=== PATIENT | male | born 1950 | race African-American/Black ===

== ENCOUNTER 2017-04-28 12:54 | Inpatient (IN) | payer OTHER ==
[~2017-04-28] VITALS: Ht 165.1 cm; Wt 61.7 kg
[2017-04-28] MEDS ORDERED: INSULIN (12:59)
[2017-04-28] MEDS ORDERED: SODIUM CHLORIDE 0.9% 1,000 ML IV ONE (13:56)
[2017-04-28 14:12] LABS: BASOPHILS % 0.3 % (0.0-2.0); HEMATOCRIT. 36.6 % (42.0-52.0); HEMOGLOBIN. 12.2 g/dL (14.0-18.0); MEAN CORPUSCULAR HEMOGLOBIN 31.1 pg (28.0-32.0); MEAN CORPUSCULAR VOLUME 93.1 fL (80.0-94.0); MEAN PLATELET VOLUME 7.8 fl (7.4-10.4); MONOCYTES % 12.6 % (2.0-8.0); NEUTROPHILS % 71.1 % (40.0-76.0); PLATELET 213 x1000/uL (130-400); RED BLOOD CELL COUNT 3.93 mill/uL (4.7-6.1); RED CELL DISTRIBUTION WIDTH 13.6 % (11.6-14.6)
[2017-04-28 14:28] LABS: CARBON DIOXIDE 27 mEq/L (21-32); CHLORIDE 96 mEq/L (98-107); ETHANOL BLOOD 32 mg/dL; TROPONIN I < 0.02 ng/mL (0.00-0.04)
[2017-04-28 14:57] LABS: CLARITY URINE CLEAR (CLEAR); COLOR URINE YELLOW (YELLOW); GLUCOSE URINE 3+ (NEGATIVE); KETONES URINE NEGATIVE (NEGATIVE); LEUKOCYTE ESTERASE URINE NEGATIVE (NEGATIVE); NITRITE URINE NEGATIVE (NEGATIVE); OCCULT BLOOD URINE 1+ (NEGATIVE); PH URINE 5.5 (4.5-8.0); PROTEIN URINE TRACE (NEGATIVE); SPECIFIC GRAVITY URINE 1.027 (1.005-1.030); UROBILINOGEN URINE 0.2 E.U./dL (0.2-1.0)
[2017-04-28 15:30] LABS: *AMPHETAMINES SCREEN URINE NEGATIVE (NEGATIVE); *BARBITURATES SCREEN URINE NEGATIVE (NEGATIVE); *BENZODIAZEPINES SCREEN URINE NEGATIVE (NEGATIVE); *COCAINE SCREEN URINE PRESUMTIVE POSITIVE (NEGATIVE); CANNABINOID URINE SCREEN NEGATIVE (NEGATIVE); METHADONE URINE SCREEN NEGATIVE (NEGATIVE); OPIATES URINE SCREEN NEGATIVE (NEGATIVE); PHENCYCLIDINE URINE SCREEN NEGATIVE (NEGATIVE)
[2017-04-28] MEDS ORDERED: INSULIN REGULAR (HUMULIN R) UD 100 UNITS/ML SYR IV ONE (15:30)
[2017-04-28] MEDS: INSULIN REGULAR (HUMULIN R) 300UNITS/3ML IV NR ×2 (15:45→17:03)
[2017-04-28] MEDS ORDERED: IPRATROPIUM/ALBUTEROL 0.5-3(2.5)MG/3ML NEB INH PRN (19:30)
[2017-04-28] MEDS ORDERED: ONDANSETRON HCL 4MG/2ML VIAL IV PRN (19:30)
[2017-04-28] MEDS ORDERED: MAGNESIUM/ALUMINUM HYDROXIDE/SIMETHICONE 30ML UDC PO PRN (19:30)
[2017-04-28] MEDS ORDERED: DIPHENHYDRAMINE 50MG/ML VIAL IV PRN (19:30)
[2017-04-28] MEDS ORDERED: LORAZEPAM 0.5MG TABLET PO PRN (19:30)
[2017-04-28] MEDS ORDERED: DEXTROSE 50% WATER 50ML SYRINGE IV PRN (19:30)
[2017-04-28 20:00] VITALS: BP 116/80
[2017-04-28] MEDS: BLOOD SUGAR DIAGNOSTIC STRIP TEST SCH (21:23)
[2017-04-28] MEDS: SODIUM CHLORIDE 0.9% 1,000 ML IV SCH (21:29)
[2017-04-28] MEDS: INSULIN LISPRO 100 UNITS/ML SUBCUT SCH (21:30)
[2017-04-28 21:40] LABS: CHLORIDE 103 mEq/L (98-107)
[2017-04-28 21:45] LABS: CARBON DIOXIDE 28 mEq/L (21-32)
[2017-04-28] MEDS ORDERED: INSULIN DETEMIR UD 100 UNITS/ML SYR SUBCUT SCH (22:00)
[2017-04-28 22:11] VITALS: BP 113/72
[2017-04-29] VITALS: BP 143/81
[2017-04-29 04:00] VITALS: BP 116/75
[2017-04-29] MEDS: SODIUM CHLORIDE 0.9% 1,000 ML IV SCH (04:19)
[2017-04-29] MEDS: BLOOD SUGAR DIAGNOSTIC STRIP TEST SCH ×4 (06:15→20:42)
[2017-04-29] MEDS: INSULIN LISPRO 100 UNITS/ML SUBCUT SCH ×4 (06:15→21:06)
[2017-04-29 08:00] VITALS: BP 106/62
[2017-04-29 12:00] VITALS: BP 116/75
[2017-04-29] MEDS ORDERED: POTASSIUM CHLORIDE 20MEQ TABLET SR PO SCH (14:00)
[2017-04-29 16:00] VITALS: BP 132/90
[2017-04-29] MEDS: ACETAMINOPHEN 325MG TABLET PO PRN (17:05)
[2017-04-29 20:00] VITALS: BP 98/63
[2017-04-29] MEDS: INSULIN DETEMIR UD 100 UNITS/ML SYR SUBCUT SCH (21:05)
[2017-04-30] VITALS: BP 126/77
[2017-04-30 04:00] VITALS: BP 120/75
[2017-04-30] MEDS: INSULIN LISPRO 100 UNITS/ML SUBCUT SCH ×4 (06:35→21:18)
[2017-04-30] MEDS: BLOOD SUGAR DIAGNOSTIC STRIP TEST SCH ×4 (06:35→21:14)
[2017-04-30 08:00] VITALS: BP 117/90
[2017-04-30 08:11] LABS: CARBON DIOXIDE 28 mEq/L (21-32); CHLORIDE 105 mEq/L (98-107)
[2017-04-30] MEDS ORDERED: POTASSIUM CHLORIDE 20MEQ TABLET SR PO NR ×2 (09:45→13:45)
[2017-04-30] MEDS ORDERED: MAGNESIUM 4 G PREMIX 100 ML IV NR ×2 (11:30→13:30)
[2017-04-30 12:00] VITALS: BP 153/90
[2017-04-30 16:00] VITALS: BP 179/103
[2017-04-30] MEDS: CLONIDINE 0.1MG TABLET PO PRN (17:03)
[2017-04-30 20:00] VITALS: BP 98/65
[2017-04-30] MEDS: ACETAMINOPHEN 325MG TABLET PO PRN (21:13)
[2017-04-30] MEDS: INSULIN DETEMIR UD 100 UNITS/ML SYR SUBCUT SCH (21:14)
[2017-05-01] VITALS: BP 100/63
[2017-05-01 04:00] VITALS: BP 127/78
[2017-05-01] MEDS: BLOOD SUGAR DIAGNOSTIC STRIP TEST SCH ×4 (06:12→21:00)
[2017-05-01] MEDS: INSULIN LISPRO 100 UNITS/ML SUBCUT SCH ×4 (06:12→21:38)
[2017-05-01 08:46] VITALS: BP 102/62
[2017-05-01 12:10] VITALS: BP 128/60
[2017-05-01 16:39] VITALS: BP 103/65
[2017-05-01 20:00] VITALS: BP 120/66
[2017-05-01] MEDS: INSULIN DETEMIR UD 100 UNITS/ML SYR SUBCUT SCH (21:39)
[2017-05-02] VITALS: BP 131/77
[2017-05-02 04:00] VITALS: BP 128/72
[2017-05-02] MEDS: BLOOD SUGAR DIAGNOSTIC STRIP TEST SCH ×4 (06:06→21:24)
[2017-05-02] MEDS: INSULIN LISPRO 100 UNITS/ML SUBCUT SCH ×4 (06:25→21:32)
[2017-05-02 08:00] VITALS: BP 125/70
[2017-05-02 12:00] VITALS: BP 121/79
[2017-05-02 16:09] VITALS: BP 164/82
[2017-05-02] MEDS: METFORMIN HCL 500MG TABLET PO SCH (17:33)
[2017-05-02 20:00] VITALS: BP 107/62
[2017-05-02] MEDS: INSULIN DETEMIR UD 100 UNITS/ML SYR SUBCUT SCH (22:34)
[2017-05-03] VITALS: BP 105/60
[2017-05-03 05:00] VITALS: BP 82/50
[2017-05-03] MEDS: BLOOD SUGAR DIAGNOSTIC STRIP TEST SCH ×4 (06:28→21:00)
[2017-05-03] MEDS: INSULIN LISPRO 100 UNITS/ML SUBCUT SCH ×4 (06:29→22:07)
[2017-05-03 08:00] VITALS: BP 104/62
[2017-05-03] MEDS: METFORMIN HCL 500MG TABLET PO SCH ×2 (08:35→17:21)
[2017-05-03 12:00] VITALS: BP 109/66
[2017-05-03 16:00] VITALS: BP 127/72
[2017-05-03] MEDS ORDERED: MAGNESIUM 2 G PREMIX 50 ML IV NR (18:00)
[2017-05-03 20:00] VITALS: BP 100/52
[2017-05-03] MEDS: INSULIN DETEMIR UD 100 UNITS/ML SYR SUBCUT SCH (22:15)
[2017-05-04] VITALS: BP 104/62
[2017-05-04 04:00] VITALS: BP 106/65
[2017-05-04] MEDS: INSULIN LISPRO 100 UNITS/ML SUBCUT SCH ×4 (06:39→21:05)
[2017-05-04] MEDS: BLOOD SUGAR DIAGNOSTIC STRIP TEST SCH ×4 (06:39→20:50)
[2017-05-04 08:00] VITALS: BP 86/45
[2017-05-04] MEDS: METFORMIN HCL 500MG TABLET PO SCH ×2 (08:06→17:57)
[2017-05-04 12:00] VITALS: BP 165/99
[2017-05-04] MEDS: CLONIDINE 0.1MG TABLET PO PRN (12:54)
[2017-05-04 16:00] VITALS: BP 99/60
[2017-05-04 20:00] VITALS: BP 109/71
[2017-05-04] MEDS: INSULIN DETEMIR UD 100 UNITS/ML SYR SUBCUT SCH (21:05)
[2017-05-05] VITALS: BP 116/65
[2017-05-05 04:00] VITALS: BP 94/51
[2017-05-05] MEDS: BLOOD SUGAR DIAGNOSTIC STRIP TEST SCH ×2 (05:53→11:56)
[2017-05-05] MEDS: INSULIN LISPRO 100 UNITS/ML SUBCUT SCH ×2 (06:39→12:19)
[2017-05-05] MEDS: METFORMIN HCL 500MG TABLET PO SCH (07:57)
[2017-05-05 08:00] VITALS: BP 127/74
[2017-05-05 12:00] VITALS: BP 125/67
[2017-05-05 13:12] VITALS: BP 125/67
== END 2017-05-05 13:40 | disposition home or self-care (01) | DRG 638 ==
LOC: ER 13:33 → 5WST 16:46 → ENRESERV 17:29
PROVIDERS: ADMIT Internal Medicine; ATTEND Internal Medicine
DX: E11.00 Type 2 diabetes mellitus with hyperosmolarity without nonketotic hyperglycemic-hyperosmolar coma (NKHHC) (principal); N17.9 Acute kidney failure, unspecified; E11.42 Type 2 diabetes mellitus with diabetic polyneuropathy; I10 Essential (primary) hypertension; E11.65 Type 2 diabetes mellitus with hyperglycemia; E86.0 Dehydration; F43.10 Post-traumatic stress disorder, unspecified; F14.10 Cocaine abuse, uncomplicated; Z79.4 Long term (current) use of insulin; Z91.19 Patient's noncompliance with other medical treatment and regimen; Z82.49 Family history of ischemic heart disease and other diseases of the circulatory system; Z83.3 Family history of diabetes mellitus
CPT/HCPCS: 36415; 70450; 80048; 80051; 80053; 80305; 81001; 82962; 83036; 83735; 84484; 85025; 96361; 96374; 97116; 97162; 97530; 99285; G0482; J1815; J3475; J7030

== ENCOUNTER 2018-10-17 00:13 | Emergency (ER) | payer MEDICARE, MEDICAID ==
[~2018-10-17] VITALS: Ht 172.7 cm; Wt 82.0 kg
[~2018-10-17 00:13] MED LIST: GABA-529 PO; HYDR-4001 PO; INSLIS SUBCUT
[2018-10-17] MEDS ORDERED: KETOROLAC 15MG/ML VIAL IM ONE (01:00)
[2018-10-17 02:01] VITALS: BP 150/68
== END 2018-10-17 02:02 | disposition home or self-care (01) ==
LOC: ER 00:13
DX: M19.90 Unspecified osteoarthritis, unspecified site (principal); E11.42 Type 2 diabetes mellitus with diabetic polyneuropathy; I10 Essential (primary) hypertension; M10.9 Gout, unspecified; Z79.4 Long term (current) use of insulin
CPT/HCPCS: 96372; 99283; J1885

== ENCOUNTER 2018-12-04 21:10 | Emergency (ER) | payer BC, MEDICAID ==
[~2018-12-04] VITALS: Ht 177.8 cm; Wt 73.0 kg
[2018-12-05] MEDS ORDERED: IBUPROFEN 600MG TABLET PO ONE (03:30)
[2018-12-05] MEDS ORDERED: HYDROCODONE/ACETAMINOPHEN 5/325MG TABLET PO ONE (03:30)
[2018-12-05 04:11] LABS: CHLORIDE 104 mEq/L (98-107)
[2018-12-05 04:14] LABS: BASOPHILS % 0.7 % (0.0-2.0); EOSINOPHILS % 4.8 % (0.0-5.0); HEMATOCRIT. 37.2 % (42.0-52.0); MEAN CORPUSCULAR HEMOGLOBIN 29.4 pg (28.0-32.0); MEAN CORPUSCULAR VOLUME 90.8 fL (80.0-94.0); MONOCYTES % 14.1 % (2.0-8.0); NEUTROPHILS % 50.4 % (40.0-76.0); PLATELET 321 x1000/uL (130-400); RED BLOOD CELL COUNT 4.09 mill/uL (4.7-6.1); RED CELL DISTRIBUTION WIDTH 15.2 % (11.6-14.6)
[2018-12-05 07:42] VITALS: BP 138/77
== END 2018-12-05 13:16 | disposition home or self-care (01) ==
LOC: ER 21:10
DX: E10.40 Type 1 diabetes mellitus with diabetic neuropathy, unspecified (principal); E10.65 Type 1 diabetes mellitus with hyperglycemia; M06.9 Rheumatoid arthritis, unspecified; Z79.4 Long term (current) use of insulin; Z79.899 Other long term (current) drug therapy
CPT/HCPCS: 36415; 99283

== ENCOUNTER 2018-12-26 08:00 | Emergency (ER) | payer BC, MEDICAID ==
[~2018-12-26] VITALS: Ht 167.6 cm; Wt 73.0 kg
[2018-12-26 12:32] VITALS: BP 122/69
== END 2018-12-26 18:00 | disposition left against medical advice (07) ==
LOC: ER 08:00
DX: R51 Headache (principal); Z53.21 Procedure and treatment not carried out due to patient leaving prior to being seen by health care provider
CPT/HCPCS: 82962